=== PATIENT | male | born 2000 | race Caucasian/White ===

== ENCOUNTER 2024-01-17 04:53 | Emergency (ER) | payer OTHER ==
[2024-01-17 05:15] VITALS: BP 127/69
--- NOTE | 2024-01-17 05:27 | ED Physician Documentation ---
PD HPI NVD - Stated complaint Stated Complaint: VOMITING - Chief complaint Chief Complaint: Abd Pain - History obtained from History obtained from: Patient - History of Present Illness Timing - onset: Yesterday Associated symptoms: Abdominal pain (cramping intermittent, not continual. Took Ibuprfen and Naproxen for it. He says higher OTC dose 1200 mg Ibuprofen and 880 Naproxen later.). No: Fever, Melena, Hematochezia Contributing factors: No: Sick contact, Bad food Similar symptoms before: Has not had sx before Review of Systems Nose: denies: Rhinorrhea / runny nose, Congestion Throat: denies: Sore throat Respiratory: denies: Cough : denies: Dysuria, Frequency PD PAST MEDICAL HISTORY - Past Medical History Past Medical History: No - Past Surgical History Past Surgical History: No - Present Medications Home Medications: Ambulatory Orders Medication Instructions Recorded Confirmed Famotidine [Pepcid] 20 mg PO BID #20 tablet 01/17/24 Ondansetron Odt [Zofran] 4 mg TL Q6H PRN #10 tablet 01/17/24 Promethazine Supp [Phenergan Supp] 25 mg TN Q6H PRN #5 supp 01/17/24 - Allergies Allergies/Adverse Reactions: Allergies Allergy/AdvReac Type Severity Reaction Status Date / Time chloral hydrate AdvReac Unknown Verified 01/17/24 05:16 gabapentin AdvReac Unknown Verified 01/17/24 05:16 melatonin AdvReac Unknown Verified 01/17/24 05:16 - Social History Does the pt smoke?: No Smoking Status: Never smoker PD ED PE NORMAL - Vitals Vital signs reviewed: Yes - General General: Alert and oriented X 3, Well developed/nourished - Cardiac Cardiac: RRR, No murmur - Respiratory Respiratory: Clear bilaterally - Abdomen Abdomen: Normal bowel sounds, Soft, Non tender, Non distended - Derm Derm: Normal color, Warm and dry Results - Vitals Vitals: Oxygen O2 Source Room air - Labs Labs: Laboratory Tests 01/17/24 01/17/24 01/17/24 05:30 05:30 05:30 WBC 7.5 RBC 4.99 Hgb 14.3 Hct 43.6 MCV 87.4 MCH 28.7 MCHC 32.8 RDW 13.2 Plt Count 291 MPV 10.1 Neut # (Auto) 4.5 Lymph # (Auto) 1.7 [place] # (Auto) 1.0 Eos # (Auto) 0.2 Baso # (Auto) 0.1 Absolute Nucleated RBC 0.00 Nucleated RBC % 0.0 Sodium 139 Potassium 3.8 Chloride 108 Carbon Dioxide 24 Anion Gap 7.0 BUN 16 Creatinine 1.0 Estimated GFR (MDRD) 92 Glucose 112 H Calcium 9.8 Magnesium 1.9 Total Bilirubin 0.5 AST 18 ALT 24 Alkaline Phosphatase 77 Total Protein 6.8 Albumin 4.5 Globulin 2.3 Albumin/Globulin Ratio 2.0 Lipase 22 PD Medical Decision Making - ED course Complexity details: reviewed results (basic lytes and labs are normal. CBC is normal. ), re-evaluated patient (improved with IV fluids and anitnuaseant.), considered differential (seems likely viral GE. No focal tenderness and low suspicion for localized infection. I did not see value in CT scanning. ), d/w patient ED course: he was concerned about taking too much NSAIDs for the current symptoms. The doses he took are not too far over (1200 mg Ibuprofen adn 880 naproxen). Renal function is good. It may have added to stomach irritation but okay enoufh for now. His symptoms osund most likely viral GE. He is feeling improved with IV fluids and antinauseant here. Departure - Departure Disposition: 01 Home, Self Care Clinical Impression: Nausea and vomiting, Volume depletion Condition: Stable Record reviewed to determine appropriate education?: Yes Instructions: ED Nausea Vomiting Follow-Up: LONDON LOPEZ ARNP [Primary Care Provider] - Prescriptions: Famotidine [Pepcid] 20 mg PO BID #20 tablet Promethazine Supp [Phenergan Supp] 25 mg TN Q6H PRN #5 supp PRN Reason: Nausea / Vomiting Ondansetron Odt [Zofran] 4 mg TL Q6H PRN #10 tablet PRN Reason: Nausea / Vomiting Comments: Your symptoms generally sound like a viral type illness. We have been seeing other patients with similar combination of symptoms related to a flulike illness. The worst of it is typically a 2 or 3 days and hopefully the vomiting part is done though nausea may still continue. For that I am prescribing some antinausea and medicines of both an oral dissolving tablet called ondansetron and some suppositories promethazine if needed. No doubt your stomach will be raw and irritated from this so some acid reducing medicine over the next 7 to 10 days also make sense to aid in its recovery. Avoid irritants to the stomach such as spicy food, NSAIDs, alcohol, a lot of caffeine. For pain or discomfort I would suggest Tylenol in the short-term for the next couple days until your stomach is feeling better and you could resume some NSAIDs as well. I sent new prescription to your preferred pharmacy. Small frequent fluids and small amounts of bland food initially through the day today and then progress as tolerated. On your blood tests are this morning, your blood sugar, kidney function, electrolytes and main blood count are all good. Forms: PCP List, Activity restrictions Discharge Date/Time: 01/17/24 08:04
[2024-01-17 05:38] LABS: BASOPHILS # (AUTO) 0.1 10^3/uL (0.0-0.1); BASOPHILS % (AUTO) 0.8 %; EOSINOPHILS # (AUTO) 0.2 10^3/uL (0.0-0.7); EOSINOPHILS % (AUTO) 3.1 %; HCT - HEMATOCRIT 43.6 % (42.0-52.0); HGB - HEMOGLOBIN 14.3 g/dL (14.0-18.0); LYMPHOCYTES # (AUTO) 1.7 10^3/uL (1.5-3.5); LYMPHOCYTES % (AUTO) 22.7 %; MEAN CORPUSCULAR HEMOGLOBIN 28.7 pg (27.0-31.0); MEAN CORPUSCULAR HGB CONC 32.8 g/dL (32.0-36.0); MEAN CORPUSCULAR VOLUME 87.4 fL (80.0-94.0); MEAN PLATELET VOLUME 10.1 fL (7.4-11.4); MONOCYTES % (AUTO) 13.1 %; NEUTROPHILS # (AUTO) 4.5 10^3/uL (1.5-6.6); NEUTROPHILS % (AUTO) 59.9 %; PLT - PLATELET COUNT 291 10^3/uL (130-450); RED BLOOD COUNT 4.99 10^6/uL (4.70-6.10); RED CELL DISTRIBUTION WIDTH 13.2 % (12.0-15.0); WHITE BLOOD COUNT 7.5 x10^3/uL (4.8-10.8)
[2024-01-17] MEDS: DIPHENOX/ATROPINE 2.5/0.025 MG TABLET PO STA (05:52)
[2024-01-17] MEDS: ONDANSETRON 4 MG/2 ML VIAL IVP STA (05:52)
[2024-01-17] MEDS: SODIUM CHLORIDE 0.9% 2,000 ML IV STA (05:53)
[2024-01-17] MEDS: ACETAMINOPHEN 1,000 MG/100 ML 1,000 MG/100 ML BAG IV ONE (05:54)
[2024-01-17 05:56] LABS: ALBUMIN 4.5 g/dL (3.2-5.5); BILIRUBIN,TOTAL 0.5 mg/dL (0.2-1.0); CALCIUM 9.8 mg/dL (8.5-10.3); POTASSIUM 3.8 mmol/L (3.5-4.5); TOTAL PROTEIN 6.8 g/dL (6.4-8.9)
[2024-01-17] MEDS: SODIUM CHLORIDE 0.9% 1,000 ML IV STA (06:01)
[2024-01-17 07:26] VITALS: O2SAT 100
== END 2024-01-17 08:04 | disposition home or self-care (01) ==
LOC: ED 04:53
DX: R11.2 Nausea with vomiting, unspecified (principal); E86.9 Volume depletion, unspecified
CPT/HCPCS: 36415; 80053; 83690; 83735; 85025; 96365; 96375; 99283; A9270; J0131